=== PATIENT | male | born 1945 | race Caucasian/White ===

== ENCOUNTER 2018-06-26 14:19 | Outpatient (REF) | payer MEDICARE, MEDICAID, SELFPAY ==
[2018-06-26 14:56] LABS: ALT 19 U/L (12-78); AST 14 U/L (15-37); Albumin 2.8 g/dL (3.4-5.0); Alkaline Phosphatase 99 U/L (46-116); Anion Gap 8.7 mmol/L (3-11); BUN 15 mg/dL (7-18); Bilirubin, Total 0.3 mg/dL (0.2-1.0); CO2 28.3 mmol/L (21.0-32.0); CREATININE 1.21 mg/dL (0.70-1.30); Calcium 9.2 mg/dL (8.5-10.1); Chloride 98 mmol/L (98-107); Estimated GFR 59.12 (mL/min/1.73m2); Glucose 197 mg/dL (70-100); Potassium 3.8 mmol/L (3.5-5.1); Sodium 135 mmol/L (136-145)
== END 2018-06-26 14:39 ==
LOC: LBN 14:19
PROVIDERS: Visit Provider Internal Medicine Hematology & Oncology
DX: C34.91 Malignant neoplasm of unspecified part of right bronchus or lung (principal)
CPT/HCPCS: 80053

== ENCOUNTER 2018-06-27 10:00 | Emergency (ER) | payer MEDICARE, MEDICAID, SELFPAY ==
[2018-06-27] VITALS (13 sets, daily range): BP systolic 89–115; BP diastolic 62–64; PULSE 63–88; RESP 16–22; TEMP 36.8–36.9; O2SAT 91–98
--- NOTE | 2018-06-27 10:06 | ED.GENADUL_ITS ---
Discharge Plan Disposition Patient Disposition: HOME Condition: Stable Discharge Details Chief Complaint: Dizzy/Sync Clinical Impression: Hypotension, Dizziness Reason For Visit: JORDY Primary Care Provider: Unknown,Unknown ED Provider: Aram Garcia Discharge Instructions Additional Instructions: Your blood work was unremarkable other than your white blood cell count being elevated which could be from the cancer and chemotherapy Follow up with your oncologist and discuss your chemotherapy treatment If you have fevers, difficulty breathing, chest pain, persistent vomit or abdominal pain return to the emergency department Medical Decision Making 73 yo male who started his first chemotherapy session today for lung cancer comes in with dizziness and hypotension that started a few minutes after starting the chemotherapy infusion. He denies chest pain, sob, rash or gi symptoms. Was given 500cc crystalloid with ems and now feels better and has no complaints. Will monitor to see if he has any evidence of anaphylaxis and eval for anemia and electrolyte abnormality pt remains stable without symptoms here. He does have wbc of 17 which could be from his cancer, denies any fevers, chills ,cough, urinary symptoms or other symptoms to suggest underlying infection so do not feel any additional workup indicated. ADvised he discuss his chemotherpay with his oncologist and return precautions given Differential Diagnosis allergic reaction, hypotension, electrolyte abnormality ECG Data Attestation: I personally reviewed and interpreted this ECG (s) as follows: Prior ECG tracings: not available for review Interpretation: sinus rhythm, rate of [address] t wave findings HPI General Mode of arrival: EMS . Date/Time Provider Initiated Documentation: 06/27/18 10:06 . Limitations to Documentation: no limitations . Information obtained by: patient . History of Present Illness 73 year old M presents to the emergency department with the chief complaint of dizziness, described as moderate, Patient started experiencing this hour(s) (1) and it has been now resolved. Patient notes no other symptoms.. Review of Systems Review of Systems All systems reviewed & are unremarkable except as noted in HPI and below Constitutional Denies chills, Denies fever(s) and Denies weakness Eyes Denies loss of vision ENT Denies change in voice Cardiovascular Denies chest pain and Denies dyspnea Respiratory Denies dyspnea Gastrointestinal Denies abdominal pain, Denies nausea and Denies vomiting Genitourinary Denies dysuria Musculoskeletal Denies joint swelling Integumentary/Breasts Denies rash Neurologic Denies loss of vision and Denies weakness Psychiatric Denies depression Endocrine Denies cold intolerance and Denies heat intolerance Allergic/Immunologic Denies urticaria PFSH Social History Smoking/Tobacco Use Status: Former Tobacco Use Exam Const General: no acute distress Orientation: alert HENMT Head: normal to inspection Ears: external ears normal General nose exam: external nose normal Mouth: moist mucous membranes Eyes General: appearance normal, both eyes and all related structures Neck Neck: normal visual inspection Resp Effort & Inspection: normal respiratory effort and able to speak in complete sentences Cardio Rate: regular rate Skin General skin exam: no rashes or lesions noted Neuro General: alert and oriented x3 Extrem General: normal to inspection Psych Mental Status: mental status grossly normal
[2018-06-27 10:35] LABS: Abs Immature Grans 0.16 k/cumm (0.0-0.09); Absolute Lymphocyte Count 0.31 k/cumm (1.2-3.4); Absolute Neutrophil Count 16.32 k/cumm (1.2-6.7); Basophils % 0.1; HCT 45.3 % (40.0-50.0); HGB 14.9 g/dL (13.5-17.5); Immature Grans % 0.9; Lymphocytes % 1.8; Mean Corp. HGB Concentration 32.9 g/dL (32.0-36.0); Mean Corpuscular Hemoglobin 32.3 pg (27.0-33.0); Mean Corpuscular Volume 98.1 fL (80-95); Mean Platelet Volume 8.6 fL (8.0-11.0); Monocytes % 1.2; Platelet Count 418 x1000/uL (130-400); RBC 4.62 m/cumm (4.50-6.00); RBC Distribution Width 13.5 % (11.8-14.1)
[2018-06-27 10:37] LABS: Absolute Basophil Count 0.02 k/cumm (0.0-0.2)
[2018-06-27 10:49] LABS: INR 1.1 (1.0-3.5); PTT Activated 21.4 sec (21.0-31.4); Prothrombin Time 10.4 sec (9.3-10.8)
[2018-06-27 10:52] LABS: ALT 17 U/L (12-78); AST 13 U/L (15-37); Albumin 2.5 g/dL (3.4-5.0); Alkaline Phosphatase 106 U/L (46-116); Anion Gap 11.2 mmol/L (3-11); BUN 17 mg/dL (7-18); Bilirubin, Total 0.4 mg/dL (0.2-1.0); CO2 25.8 mmol/L (21.0-32.0); Chloride 100 mmol/L (98-107); Estimated GFR 59.68 (mL/min/1.73m2); Glucose 121 mg/dL (70-100); Potassium 3.8 mmol/L (3.5-5.1); Sodium 137 mmol/L (136-145); Total Protein 6.2 g/dL (6.4-8.2)
== END 2018-06-27 11:43 | disposition home or self-care (01) ==
PROVIDERS: Emergency Provider Emergency Medicine; PCP Neuromusculoskeletal Medicine & OMM
DX: I95.9 Hypotension, unspecified (principal); R42 Dizziness and giddiness; D72.829 Elevated white blood cell count, unspecified; Z79.899 Other long term (current) drug therapy; C34.90 Malignant neoplasm of unspecified part of unspecified bronchus or lung; Z85.72 Personal history of non-Hodgkin lymphomas
CPT/HCPCS: 36415; 80053; 93005; 99283; 85025; 85610; 85730; 93010; 99284

== ENCOUNTER 2018-07-12 09:12 | Emergency (ER) | payer MEDICARE, MEDICAID, SELFPAY ==
[2018-07-12] VITALS (23 sets, daily range): BP systolic 104–133; BP diastolic 59–68; PULSE 66–82; RESP 10–20; TEMP 37–37.8; O2SAT 93–96
[2018-07-12 09:32] LABS: Bilirubin Negative (Negative); Blood Negative (Negative); Clarity Turbid; Glucose Negative (Negative); Ketones Negative (Negative); Leukocyte Esterase Small (Negative); Nitrite Negative (Negative); Urobilinogen 0.2 EU/dL (Up TO 0.2); pH >= 9.0 (5-8)
[2018-07-12] MEDS: Normal Saline 250 ML IV (09:39)
[2018-07-12 09:44] LABS: Bacteria Few HPF (Negative); Epithelial Cells Negative HPF (Negative); RBC Negative (0-2)
[2018-07-12 09:45] LABS: C & S Indicated? Yes; Casts Negative LPF (Negative); Mucus Trace (Negative)
[2018-07-12 09:48] LABS: Abs Immature Grans 0.04 k/cumm (0.0-0.09); Absolute Basophil Count 0.01 k/cumm (0.0-0.2); Absolute Eosinophil Count 0.03 k/cumm (0.0-0.7); Absolute Lymphocyte Count 0.27 k/cumm (1.2-3.4); Absolute Neutrophil Count 8.86 k/cumm (1.2-6.7); Basophils % 0.1; Eosinophils % 0.3; HCT 38.4 % (40.0-50.0); HGB 12.4 g/dL (13.5-17.5); Immature Grans % 0.4; Lactate-non-spesis 1.1 mmol/L (0.6-1.4); Lymphocytes % 2.8; Mean Corp. HGB Concentration 32.3 g/dL (32.0-36.0); Mean Corpuscular Hemoglobin 32.3 pg (27.0-33.0); Mean Platelet Volume 8.6 fL (8.0-11.0); Monocytes % 3.2; Neutrophils % 93.2; Platelet Count 331 x1000/uL (130-400); RBC 3.84 m/cumm (4.50-6.00); RBC Distribution Width 14.4 % (11.8-14.1); White Blood Cell Count 9.51 k/cumm (4.4-10.8)
[2018-07-12 10:07] LABS: ALT 25 U/L (12-78); AST 18 U/L (15-37); Albumin 2.8 g/dL (3.4-5.0); Alkaline Phosphatase 87 U/L (46-116); Anion Gap 9.9 mmol/L (3-11); BUN 12 mg/dL (7-18); Bilirubin, Total 0.4 mg/dL (0.2-1.0); CO2 26.1 mmol/L (21.0-32.0); CREATININE 1.09 mg/dL (0.70-1.30); Calcium 8.8 mg/dL (8.5-10.1); Chloride 99 mmol/L (98-107); Glucose 107 mg/dL (70-100); Magnesium 1.7 mg/dL (1.8-2.4); Sodium 135 mmol/L (136-145); Total Protein 6.7 g/dL (6.4-8.2)
[2018-07-12 10:11] LABS: Troponin I < 0.02 ng/mL (0.00-0.06)
--- NOTE | 2018-07-12 10:15 | DI.RAD_ITS ---
SYMPTOM/DIAGNOSIS: LOW GRADE FEVER, R/O PNEUMONIA PA AND LATERAL CHEST: There are no prior comparison exams. The patient has a history of right lung cancer. There is a small right pleural effusion. A mass is seen in the right upper lobe measuring roughly 4 cm in diameter. There are mildly increased basilar densities could be secondary to compressive atelectasis related to the effusion. There is a tiny left pleural effusion. The left lung is otherwise clear. The heart size is normal. IMPRESSION: Right upper lobe mass. Small right pleural effusion and right basilar atelectasis. A superimposed infiltrate cannot be entirely excluded in this location.
--- NOTE | 2018-07-12 10:43 | DI.VRAD_ITS ---
EXAM: XR Chest, 2 Views EXAM DATE/TIME: 07/12/2018 9:32 AM CLINICAL HISTORY: 73 years old, male; Signs and symptoms; Fever and shortness of breath; Patient HX: Low grade fever, and SOB since last night. PT sts was diagnosed with right lung cancer 1 month ago. Ex smoker TECHNIQUE: XR of the chest, 2 views. COMPARISON: No relevant prior studies available. FINDINGS: Lungs: There appear to be 2 right perihilar masses measuring up to 3.6 cm and 3.5 cm. There is some atelectasis and/or infiltrate at the right base. Streaky atelectasis extends laterally from the right hilar region. The left lung is relatively clear. Pleural space: There are small right and very small left pleural effusions. No pneumothorax is identified. Heart/Mediastinum: Unremarkable. No cardiomegaly. Bones/joints: The visualized bony structures appear acutely unremarkable. IMPRESSION: Small right and very small left pleural effusions with some right basilar atelectasis and/or infiltrate. Appearance of 2 right perihilar masses, further evaluation and/or followup to be determined at time of final read depending on availability of prior imaging and as per institutional protocol. Dictated and Authenticated by: Aram Hudson MD. Ordering:MICHELLE BROWNING MD
--- NOTE | 2018-07-12 11:09 | W.ED.GENAD ---
Discharge Plan Disposition Patient Disposition: HOME Condition: Stable Discharge Details Chief Complaint: Fever Clinical Impression: Fever, History of lung cancer, Status post chemotherapy Primary Care Provider: Larry Estrella ED Provider: Prema Vasques Home Meds and New Rx's Prescriptions: Continue sennosides [senna] 8.6 mg Tablet 1 tab PO DAILY RF: 0 polyethylene glycol 3350 17 gram Powder In Packet 17 g PO DAILY PRNRF: 0 hydrocodone-acetaminophen 5-325 mg Tablet 1 tab PO TID RF: 0 acetaminophen [Acetaminophen Extra Strength] 500 mg Tablet 1,000 mg PO TID RF: 0 simvastatin 40 mg Tablet 40 mg PO QPM RF: 0 ondansetron 8 mg Tablet,Disintegrating 8 mg PO TID PRNRF: 0 lorazepam 0.5 mg Tablet 0.5 mg PO QID PRN (Reason: Anxiety) RF: 0 bisacodyl 10 mg Suppository 10 mg IA DAILY RF: 0 losartan 25 mg Tablet 25 mg PO DAILY RF: 0 nitroglycerin 0.4 mg Tablet, Sublingual 0.4 mg SUBLINGUAL ONCE PRNRF: 0 gabapentin 300 mg Capsule 300 mg PO TID RF: 0 omeprazole 20 mg Capsule,Delayed Release(Dr/Ec) 20 mg PO DAILY RF: 0 diltiazem HCl [DILT-XR] 180 mg Capsule,Ext.Rel 24h Degradable 180 mg PO DAILY RF: 0 oxycodone 5 mg Tablet 10 mg PO QID PRNRF: 0 [id number] [Theragran-M Premier 50 Plus] 400-250-375 mcg Tablet 1 tab PO DAILY RF: 0 fentanyl 37.5 mcg/hour Patch 72 Hour 1 patch TRANSDERMAL Q72H RF: 0 Discharge Instructions Instructions: Fever in Adults (ED) Additional Instructions: Continue to check your temperature 3 times daily. Return to the emergency department if you develop a fever greater than 100.4. You can also call the cancer center for any recommendations. Follow-up with your scheduled appointment for your next chemotherapy session on 07/17. Discharge Data Discharge Physician: Prema Vasques Medical Decision Making 73-year-old male with a history of stage IV lung cancer who recently finished radiation a couple weeks ago, and last chemo treatment 1 week ago who presents for low-grade fever of 99.2 oral last night. Admits to chronic cough and shortness of breath but states this is no worse than usual and denies any chest pain or abdominal pain. States he has been eating and drinking well. Afebrile on arrival. Oxygen saturation 94% on room air. Remainder vitals within normal limits. Airway intact and patient is speaking full sentences. No respiratory distress. Patient appears nontoxic and in no acute distress. Due to patient's complaint and history, labs, urinalysis and chest x-ray in addition to lactate and blood culture sent on arrival. EKG notes a rate of 75, sinus, T wave inversion in V2, left anterior fascicular block, right bundle branch block seen in previous. QTc 420. QRS 104. No acute change from previous. Labs and imaging reviewed and noted a white blood cell count of 9.51. Neutrophils percent 93.2. Patient is not neutropenic. Lactate 1.1. Troponin negative. Patient denies any recent Neulasta injection. Patient has a history of urostomy bag due to previous bladder and prostate cancer and there is a 5-10 WBCs in the urine, few bacteria, small leukocyte esterase, and negative nitrate. Patient denies any acute change to appearance of urine and he denies any abdominal pain. Would expect some WBCs in the urine due to urostomy bag. Urine culture sent. Chest x-ray notes 2 R perihilar masses w/ atelectasis vs infiltrate. In the setting of normal white blood cell count, no fever here, no acute change in cough or shortness of breath, will hold on antibiotics at this time. Sputum culture sent. Will discuss with [facility] oncology. 1112 --discussed with [facility] oncology on-call Dr. Montez -states that the temperature of concern would be 100.4. Second recheck temp here 100 and third recheck temp 99.5 without any meds given. As patient is not neutropenic, appears nontoxic, normal white blood cell count, agree there does not seem to be an acute indication for antibiotics or admission. Would recommend that patient continue to check his temp TID, and if it is 100.4, to return to the emergency department. Recommends the patient can also call the cancer center for any recommendations. Patient asked for Tylenol prior to discharge for his chronic right-sided lung pain. HPI General Mode of arrival: ambulatory. Date/Time Provider Initiated Documentation: 07/12/18 09:26. Limitations to Documentation: no limitations. Information obtained by: patient. HPI Narrative: Pt is a 73yo M w/ a h/o Stage 4 Lung Cancer who recently finished radiation a few weeks ago, and had 2 chemo treatments which finished last week who presents for low-grade fever since last night. T-max 99.2 oral. States he took a dose of Tylenol at 5 AM this morning. States he has had a constant cough for several weeks which is productive of white, brown and teague sputum. He states this is no worse than usual. He states he has chronic shortness of breath and states no worse than usual. He admits to chronic right-sided lung pain. States is no worse than usual. He denies any chest pain, leg pain or swelling. States he is followed down the road at [facility] and states his next chemo treatment and appointment is on 07/17. He denies any recent hospital admission or recent antibiotics. Past medical history: HTN, HLD, Non-hodgkin's lymphoma, Stage 4 [place] Cancer, Bladder/prostate cancer Surgical history: Bladder/prostate resection Social history: Quit tobacco, Former alcohol use, Denies drugs Meds: See list Allergies: Cipro, PCN, Tetanus, Toprol, Norvasc Related Data Home Medications Medication Instructions Recorded Confirmed acetaminophen [Acetaminophen Extra 1,000 mg PO TID 07/12/18 07/12/18 Strength] bisacodyl 10 mg IA DAILY 07/12/18 07/12/18 diltiazem HCl [DILT-XR] 180 mg PO DAILY 07/12/18 07/12/18 fentanyl 1 patch TRANSDERMAL Q72H 07/12/18 07/12/18 gabapentin 300 mg PO TID 07/12/18 07/12/18 hydrocodone-acetaminophen 1 tab PO TID 07/12/18 07/12/18 lorazepam 0.5 mg PO QID PRN 07/12/18 07/12/18 losartan 25 mg PO DAILY 07/12/18 07/12/18 [id number] 1 tab PO DAILY 07/12/18 07/12/18 [Theragran-M Premier 50 Plus] nitroglycerin 0.4 mg SUBLINGUAL ONCE PRN 07/12/18 07/12/18 omeprazole 20 mg PO DAILY 07/12/18 07/12/18 ondansetron 8 mg PO TID PRN 07/12/18 07/12/18 oxycodone 10 mg PO QID PRN 07/12/18 07/12/18 polyethylene glycol 3350 17 g PO DAILY PRN 07/12/18 07/12/18 sennosides [senna] 1 tab PO DAILY 07/12/18 07/12/18 simvastatin 40 mg PO QPM 07/12/18 07/12/18 Allergies Allergy/AdvReac Type Severity Reaction Status Date / Time amlodipine Allergy Unknown Itching Unverified 07/12/18 09:34 ciprofloxacin Allergy Unknown Hives Unverified 07/12/18 09:34 metoprolol Allergy Unknown Hives Unverified 07/12/18 09:34 paclitaxel Allergy Unknown Anaphylaxsi Unverified 07/12/18 09:34 s Penicillins Allergy Unknown Other (See Unverified 07/12/18 09:35 Comment) tetanus and diphtheria Allergy Unknown Other (See Unverified 07/12/18 09:35 toxoids Comment) tetanus toxoid, adsorbed Allergy Unknown Other (See Unverified 07/12/18 09:35 Comment) General Stated Complaint: Fever BARRY: 3 Review of Systems Review of Systems All systems reviewed & are unremarkable except as noted in HPI and below Constitutional Denies chills, Denies excessive sweating, Denies fatigue, Denies fever(s), Denies weakness and Denies weight loss Eyes Reports system reviewed and no additional complaints, except as docu and Denies blurry vision ENT Denies vertigo, Denies dizziness, Denies otalgia, Denies nasal congestion, Denies sore throat and Denies throat swelling Cardiovascular Denies chest pain, Denies syncope, Denies rapid heart rate and Reports dyspnea (chronic) Respiratory Reports dyspnea (chronic) Gastrointestinal Denies abdominal pain, Denies diarrhea and Denies vomiting Genitourinary Denies hematuria, Denies dysuria and Denies flank pain Musculoskeletal Denies back pain and Denies joint swelling Integumentary/Breasts Denies lesions and Denies rash Neurologic Denies behavioral changes, Denies confusion, Denies vertigo, Denies dizziness, Denies syncope and Denies weakness Psychiatric Denies behavioral changes, Denies confusion and Denies depression Endocrine Denies excessive sweating and Denies fatigue Hematologic/Lymphatic Denies easy bruising and Denies lymphadenopathy Allergic/Immunologic Denies throat swelling [facility] Social History Smoking/Tobacco Use Status: Former Tobacco Use Exam Const General: cooperative and healthy appearing Orientation: alert and awake [facility] Head: normal to inspection Ears: hearing grossly normal bilaterally, external ears normal and TM's normal bilaterally General nose exam: external nose normal Face and sinus: normal facial exam Mouth: oral mucosae normal Teeth and gingiva: dentition normal Throat: posterior oropharynx normal Eyes General: appearance normal, both eyes and all related structures Eyelids: eyelids normal EOM: EOM intact bilaterally Neck Neck: normal visual inspection Lymphatic: no lymphadenopathy noted Chest Chest: normal inspection of the chest Resp Effort & Inspection: normal respiratory effort and able to speak in complete sentences Auscultation: clear to auscultation bilaterally and crackles on the right at the base Cardio Rate: regular rate Rhythm: regular rhythm GI Inspection: normal to inspection Palpation: soft, not firm, no guarding, no hepatosplenomegaly, no masses and nontender Auscultation: normal bowel sounds Back/Spine/Pelvis Back: no CVA tenderness Skin General skin exam: no rashes or lesions noted Neuro General: alert and awake Cognition: normal cognition Speech: speech normal Gait: normal gait Motor: muscle tone normal throughout Sensory Exam: no sensory deficits noted Extrem General: normal to inspection, full ROM, normal capillary refill and no edema Psych Appearance: grossly normal Mental Status: mental status grossly normal Speech and Movement: speech and movement normal Affect: normal affect Thought Process: normal Course 07/12/18 09:35 Sputum Sputum Culture - Pending 07/12/18 09:35 Sputum Gram Stain - Final 07/12/18 09:57 Blood Blood Culture - Pending 07/12/18 09:57 Blood Blood Culture - Pending 07/12/18 09:20 Urine - Reflex from Ua Urine Culture - Pending Laboratory Tests Range/Units 07/12/18 07/12/18 07/12/18 09:20 09:35 09:35 WBC (4.4-10.8) k/cumm RBC (4.50-6.00) m/cumm Hgb (13.5-17.5) g/dL Hct (40.0-50.0) % MCV (80-95) fL MCH (27.0-33.0) pg MCHC (32.0-36.0) g/dL RDW (11.8-14.1) % Plt Count (130-400) x1000/uL MPV (8.0-11.0) fL Immature Gran % Neutrophils % Lymphocytes % Monocytes % Eosinophils % Basophils % Absolute Neutrophils (1.2-6.7) k/cumm Absolute Lymphocytes (1.2-3.4) k/cumm Absolute Monocytes (0.11-0.7) k/cumm Absolute Eosinophils (0.0-0.7) k/cumm Absolute Basophils (0.0-0.2) k/cumm Sodium (136-145) mmol/L 135 L Potassium (3.5-5.1) mmol/L 4.0 Chloride (98-107) mmol/L 99 Carbon Dioxide (21.0-32.0) mmol/L 26.1 Anion Gap (3-11) mmol/L 9.9 BUN (7-18) mg/dL 12 Creatinine (0.70-1.30) mg/dL 1.09 Estimated GFR/1.73 m2 (mL/min/1.73m2) >= 60.00 Glucose (70-100) mg/dL 107 H Lactate (0.6-1.4) mmol/L 1.1 Calcium (8.5-10.1) mg/dL 8.8 Magnesium (1.8-2.4) mg/dL 1.7 L Total Bilirubin (0.2-1.0) mg/dL 0.4 AST (15-37) U/L 18 ALT (12-78) U/L 25 Alkaline Phosphatase (46-116) U/L 87 Troponin I (0.00-0.06) ng/mL < 0.02 Total Protein (6.4-8.2) g/dL 6.7 Albumin (3.4-5.0) g/dL 2.8 L Urine Color (Yellow) Yellow Urine Clarity Turbid Urine pH (5-8) >= 9.0 H Ur Specific [place] (1.005-1.025) 1.010 Urine Protein (Negative) mg/dL 100 H Urine Ketones (Negative) mg/dL Negative Urine Blood (Negative) Negative Urine Nitrite (Negative) Negative Urine Bilirubin (Negative) Negative Urine Urobilinogen (Up TO 0.2) EU/dL 0.2 Ur Leukocyte Esterase (Negative) Small H Urine RBC (0-2) Negative Urine WBC (0-5) HPF 5-10 Ur Epithelial Cells (Negative) HPF Negative Urine Crystals (Negative) HPF Many uric acid Urine Bacteria (Negative) HPF Few Urine Casts (Negative) LPF Negative Urine Mucus (Negative) Trace Ur Culture Indicated? Yes Urine Glucose (Negative) mg/dL Negative Range/Units 07/12/18 09:35 WBC (4.4-10.8) k/cumm 9.51 RBC (4.50-6.00) m/cumm 3.84 L Hgb (13.5-17.5) g/dL 12.4 L Hct (40.0-50.0) % 38.4 L MCV (80-95) fL 100.0 H MCH (27.0-33.0) pg 32.3 MCHC (32.0-36.0) g/dL 32.3 RDW (11.8-14.1) % 14.4 H Plt Count (130-400) x1000/uL 331 MPV (8.0-11.0) fL 8.6 Immature Gran % 0.4 Neutrophils % 93.2 Lymphocytes % 2.8 Monocytes % 3.2 Eosinophils % 0.3 Basophils % 0.1 Absolute Neutrophils (1.2-6.7) k/cumm 8.86 H Absolute Lymphocytes (1.2-3.4) k/cumm 0.27 L Absolute Monocytes (0.11-0.7) k/cumm 0.30 Absolute Eosinophils (0.0-0.7) k/cumm 0.03 Absolute Basophils (0.0-0.2) k/cumm 0.01 Sodium (136-145) mmol/L Potassium (3.5-5.1) mmol/L Chloride (98-107) mmol/L Carbon Dioxide (21.0-32.0) mmol/L Anion Gap (3-11) mmol/L BUN (7-18) mg/dL Creatinine (0.70-1.30) mg/dL Estimated GFR/1.73 m2 (mL/min/1.73m2) Glucose (70-100) mg/dL Lactate (0.6-1.4) mmol/L Calcium (8.5-10.1) mg/dL Magnesium (1.8-2.4) mg/dL Total Bilirubin (0.2-1.0) mg/dL AST (15-37) U/L ALT (12-78) U/L Alkaline Phosphatase (46-116) U/L Troponin I (0.00-0.06) ng/mL Total Protein (6.4-8.2) g/dL Albumin (3.4-5.0) g/dL Urine Color (Yellow) Urine Clarity Urine pH (5-8) Ur Specific [place] (1.005-1.025) Urine Protein (Negative) mg/dL Urine Ketones (Negative) mg/dL Urine Blood (Negative) Urine Nitrite (Negative) Urine Bilirubin (Negative) Urine Urobilinogen (Up TO 0.2) EU/dL Ur Leukocyte Esterase (Negative) Urine RBC (0-2) Urine WBC (0-5) HPF Ur Epithelial Cells (Negative) HPF Urine Crystals (Negative) HPF Urine Bacteria (Negative) HPF Urine Casts (Negative) LPF Urine Mucus (Negative) Ur Culture Indicated? Urine Glucose (Negative) mg/dL Vital Signs Temperature 98.6 F 07/12/18 09:16 Pulse 82 07/12/18 09:16 Respiratory Rate 18 07/12/18 09:16 Blood Pressure 133/66 07/12/18 09:16 Pulse Oximetry 94 L 07/12/18 09:16 Temperature 100.0 F H 07/12/18 10:35 Temperature Source Skin 07/12/18 09:16 Pulse 68 07/12/18 10:16 Pulse 67 07/12/18 10:30 Respiratory Rate 14 07/12/18 10:30 Respiratory Effort Non-Labored 07/12/18 09:19 Blood Pressure 116/59 L 07/12/18 10:16 Blood Pressure Mean 73 07/12/18 10:16 Pulse Oximetry 94 L 07/12/18 10:30 Pain Level 8 07/12/18 09:16 Lab/Test Results Lab/Test Results: 07/12/18 09:35 Sputum Sputum Culture - Pending 07/12/18 09:35 Sputum Gram Stain - Final 07/12/18 09:57 Blood Blood Culture - Pending 07/12/18 09:57 Blood Blood Culture - Pending 07/12/18 09:20 Urine - Reflex from Ua Urine Culture - Pending Laboratory Tests Range/Units 07/12/18 07/12/18 07/12/18 09:20 09:35 09:35 WBC (4.4-10.8) k/cumm RBC (4.50-6.00) m/cumm Hgb (13.5-17.5) g/dL Hct (40.0-50.0) % MCV (80-95) fL MCH (27.0-33.0) pg MCHC (32.0-36.0) g/dL RDW (11.8-14.1) % Plt Count (130-400) x1000/uL MPV (8.0-11.0) fL Immature Gran % Neutrophils % Lymphocytes % Monocytes % Eosinophils % Basophils % Absolute Neutrophils (1.2-6.7) k/cumm Absolute Lymphocytes (1.2-3.4) k/cumm Absolute Monocytes (0.11-0.7) k/cumm Absolute Eosinophils (0.0-0.7) k/cumm Absolute Basophils (0.0-0.2) k/cumm Sodium (136-145) mmol/L 135 L Potassium (3.5-5.1) mmol/L 4.0 Chloride (98-107) mmol/L 99 Carbon Dioxide (21.0-32.0) mmol/L 26.1 Anion Gap (3-11) mmol/L 9.9 BUN (7-18) mg/dL 12 Creatinine (0.70-1.30) mg/dL 1.09 Estimated GFR/1.73 m2 (mL/min/1.73m2) >= 60.00 Glucose (70-100) mg/dL 107 H Lactate (0.6-1.4) mmol/L 1.1 Calcium (8.5-10.1) mg/dL 8.8 Magnesium (1.8-2.4) mg/dL 1.7 L Total Bilirubin (0.2-1.0) mg/dL 0.4 AST (15-37) U/L 18 ALT (12-78) U/L 25 Alkaline Phosphatase (46-116) U/L 87 Troponin I (0.00-0.06) ng/mL < 0.02 Total Protein (6.4-8.2) g/dL 6.7 Albumin (3.4-5.0) g/dL 2.8 L Urine Color (Yellow) Yellow Urine Clarity Turbid Urine pH (5-8) >= 9.0 H Ur Specific [place] (1.005-1.025) 1.010 Urine Protein (Negative) mg/dL 100 H Urine Ketones (Negative) mg/dL Negative Urine Blood (Negative) Negative Urine Nitrite (Negative) Negative Urine Bilirubin (Negative) Negative Urine Urobilinogen (Up TO 0.2) EU/dL 0.2 Ur Leukocyte Esterase (Negative) Small H Urine RBC (0-2) Negative Urine WBC (0-5) HPF 5-10 Ur Epithelial Cells (Negative) HPF Negative Urine Crystals (Negative) HPF Many uric acid Urine Bacteria (Negative) HPF Few Urine Casts (Negative) LPF Negative Urine Mucus (Negative) Trace Ur Culture Indicated? Yes Urine Glucose (Negative) mg/dL Negative Range/Units 07/12/18 09:35 WBC (4.4-10.8) k/cumm 9.51 RBC (4.50-6.00) m/cumm 3.84 L Hgb (13.5-17.5) g/dL 12.4 L Hct (40.0-50.0) % 38.4 L MCV (80-95) fL 100.0 H MCH (27.0-33.0) pg 32.3 MCHC (32.0-36.0) g/dL 32.3 RDW (11.8-14.1) % 14.4 H Plt Count (130-400) x1000/uL 331 MPV (8.0-11.0) fL 8.6 Immature Gran % 0.4 Neutrophils % 93.2 Lymphocytes % 2.8 Monocytes % 3.2 Eosinophils % 0.3 Basophils % 0.1 Absolute Neutrophils (1.2-6.7) k/cumm 8.86 H Absolute Lymphocytes (1.2-3.4) k/cumm 0.27 L Absolute Monocytes (0.11-0.7) k/cumm 0.30 Absolute Eosinophils (0.0-0.7) k/cumm 0.03 Absolute Basophils (0.0-0.2) k/cumm 0.01 Sodium (136-145) mmol/L Potassium (3.5-5.1) mmol/L Chloride (98-107) mmol/L Carbon Dioxide (21.0-32.0) mmol/L Anion Gap (3-11) mmol/L BUN (7-18) mg/dL Creatinine (0.70-1.30) mg/dL Estimated GFR/1.73 m2 (mL/min/1.73m2) Glucose (70-100) mg/dL Lactate (0.6-1.4) mmol/L Calcium (8.5-10.1) mg/dL Magnesium (1.8-2.4) mg/dL Total Bilirubin (0.2-1.0) mg/dL AST (15-37) U/L ALT (12-78) U/L Alkaline Phosphatase (46-116) U/L Troponin I (0.00-0.06) ng/mL Total Protein (6.4-8.2) g/dL Albumin (3.4-5.0) g/dL Urine Color (Yellow) Urine Clarity Urine pH (5-8) Ur Specific [place] (1.005-1.025) Urine Protein (Negative) mg/dL Urine Ketones (Negative) mg/dL Urine Blood (Negative) Urine Nitrite (Negative) Urine Bilirubin (Negative) Urine Urobilinogen (Up TO 0.2) EU/dL Ur Leukocyte Esterase (Negative) Urine RBC (0-2) Urine WBC (0-5) HPF Ur Epithelial Cells (Negative) HPF Urine Crystals (Negative) HPF Urine Bacteria (Negative) HPF Urine Casts (Negative) LPF Urine Mucus (Negative) Ur Culture Indicated? Urine Glucose (Negative) mg/dL
--- NOTE | 2018-07-12 11:17 | ED.GENADUL_ITS ---
Discharge Plan Disposition Patient Disposition: HOME Condition: Stable Discharge Details Chief Complaint: Fever Clinical Impression: Fever, History of lung cancer, Status post chemotherapy Primary Care Provider: Larry Estrella ED Provider: Prema Vasques Home Meds and New Rx's Prescriptions: Continue sennosides [senna] 8.6 mg Tablet 1 tab PO DAILY RF: 0 polyethylene glycol 3350 17 gram Powder In Packet 17 g PO DAILY PRNRF: 0 hydrocodone-acetaminophen 5-325 mg Tablet 1 tab PO TID RF: 0 acetaminophen [Acetaminophen Extra Strength] 500 mg Tablet 1,000 mg PO TID RF: 0 simvastatin 40 mg Tablet 40 mg PO QPM RF: 0 ondansetron 8 mg Tablet,Disintegrating 8 mg PO TID PRNRF: 0 lorazepam 0.5 mg Tablet 0.5 mg PO QID PRN (Reason: Anxiety) RF: 0 bisacodyl 10 mg Suppository 10 mg [place] DAILY RF: 0 losartan 25 mg Tablet 25 mg PO DAILY RF: 0 nitroglycerin 0.4 mg Tablet, Sublingual 0.4 mg SUBLINGUAL ONCE PRNRF: 0 gabapentin 300 mg Capsule 300 mg PO TID RF: 0 omeprazole 20 mg Capsule,Delayed Release(Dr/Ec) 20 mg PO DAILY RF: 0 diltiazem HCl [DILT-XR] 180 mg Capsule,Ext.Rel 24h Degradable 180 mg PO DAILY RF: 0 oxycodone 5 mg Tablet 10 mg PO QID PRNRF: 0 [id number] [Theragran-M Premier 50 Plus] 400-250-375 mcg Tablet 1 tab PO DAILY RF: 0 fentanyl 37.5 mcg/hour Patch 72 Hour 1 patch TRANSDERMAL Q72H RF: 0 Discharge Instructions Instructions: Fever in Adults (ED) Additional Instructions: Continue to check your temperature 3 times daily. Return to the emergency department if you develop a fever greater than 100.4. You can also call the cancer center for any recommendations. Follow-up with your scheduled appointment for your next chemotherapy session on 07/17. Discharge Data Discharge Physician: Prema Vasques Medical Decision Making 73-year-old male with a history of stage IV lung cancer who recently finished radiation a couple weeks ago, and last chemo treatment 1 week ago who presents for low-grade fever of 99.2 oral last night. Admits to chronic cough and shortness of breath but states this is no worse than usual and denies any chest pain or abdominal pain. States he has been eating and drinking well. Afebrile on arrival. Oxygen saturation 94% on room air. Remainder vitals within normal limits. Airway intact and patient is speaking full sentences. No respiratory distress. Patient appears nontoxic and in no acute distress. Due to patient's complaint and history, labs, urinalysis and chest x-ray in addition to lactate and blood culture sent on arrival. EKG notes a rate of 75, sinus, T wave inversion in V2, left anterior fascicular block, right bundle branch block seen in previous. QTc 420. QRS 104. No acute change from previous. Labs and imaging reviewed and noted a white blood cell count of 9.51. Neutrophils percent 93.2. Patient is not neutropenic. Lactate 1.1. Troponin negative. Patient denies any recent Neulasta injection. Patient has a history of urostomy bag due to previous bladder and prostate cancer and there is a 5-10 WBCs in the urine, few bacteria, small leukocyte esterase, and negative nitrate. Patient denies any acute change to appearance of urine and he denies any abdominal pain. Would expect some WBCs in the urine due to urostomy bag. Urine culture sent. Chest x-ray notes 2 R perihilar masses w/ atelectasis vs infiltrate. In the setting of normal white blood cell count, no fever here, no acute change in cough or shortness of breath, will hold on antibiotics at this time. Sputum culture sent. Will discuss with [facility] oncology. 1112 --discussed with [facility] oncology on-call Dr. Montez -states that the temperature of concern would be 100.4. Second recheck temp here 100 and third recheck temp 99.5 without any meds given. As patient is not neutropenic, appears nontoxic, normal white blood cell count, agree there does not seem to be an acute indication for antibiotics or admission. Would recommend that patient continue to check his temp TID, and if it is 100.4, to return to the emergency department. Recommends the patient can also call the cancer center for any recommendations. Patient asked for Tylenol prior to discharge for his chronic right-sided lung pain. HPI General Mode of arrival: ambulatory . Date/Time Provider Initiated Documentation: 07/12/18 09:26 . Limitations to Documentation: no limitations . Information obtained by: patient . HPI Narrative: Pt is a 73yo M w/ a h/o Stage 4 Lung Cancer who recently finished radiation a few weeks ago, and had 2 chemo treatments which finished last week who presents for low-grade fever since last night. T-max 99.2 oral. States he took a dose of Tylenol at 5 AM this morning. States he has had a constant cough for several weeks which is productive of white, brown and teague sputum. He states this is no worse than usual. He states he has chronic shortness of breath and states no worse than usual. He admits to chronic right-sided lung pain. States is no worse than usual. He denies any chest pain, leg pain or swelling. States he is followed down the road at [facility] and states his next chemo treatment and appointment is on 07/17. He denies any recent hospital admission or recent antibiotics. Past medical history: HTN, HLD, Non-hodgkin's lymphoma, Stage 4 [place] Cancer, Bladder/prostate cancer Surgical history: Bladder/prostate resection Social history: Quit tobacco, Former alcohol use, Denies drugs Meds: See list Allergies: Cipro, PCN, Tetanus, Toprol, Norvasc Related Data Home Medications Medication Instructions Recorded Confirmed acetaminophen [Acetaminophen Extra 1,000 mg PO TID 07/12/18 07/12/18 Strength] bisacodyl 10 mg [place] DAILY 07/12/18 07/12/18 diltiazem HCl [DILT-XR] 180 mg PO DAILY 07/12/18 07/12/18 fentanyl 1 patch TRANSDERMAL Q72H 07/12/18 07/12/18 gabapentin 300 mg PO TID 07/12/18 07/12/18 hydrocodone-acetaminophen 1 tab PO TID 07/12/18 07/12/18 lorazepam 0.5 mg PO QID PRN 07/12/18 07/12/18 losartan 25 mg PO DAILY 07/12/18 07/12/18 [id number] 1 tab PO DAILY 07/12/18 07/12/18 [Theragran-M Premier 50 Plus] nitroglycerin 0.4 mg SUBLINGUAL ONCE PRN 07/12/18 07/12/18 omeprazole 20 mg PO DAILY 07/12/18 07/12/18 ondansetron 8 mg PO TID PRN 07/12/18 07/12/18 oxycodone 10 mg PO QID PRN 07/12/18 07/12/18 polyethylene glycol 3350 17 g PO DAILY PRN 07/12/18 07/12/18 sennosides [senna] 1 tab PO DAILY 07/12/18 07/12/18 simvastatin 40 mg PO QPM 07/12/18 07/12/18 Allergies Allergy/AdvReac Type Severity Reaction Status Date / Time amlodipine Allergy Unknown Itching Unverified 07/12/18 09:34 ciprofloxacin Allergy Unknown Hives Unverified 07/12/18 09:34 metoprolol Allergy Unknown Hives Unverified 07/12/18 09:34 paclitaxel Allergy Unknown Anaphylaxsi Unverified 07/12/18 09:34 s Penicillins Allergy Unknown Other (See Unverified 07/12/18 09:35 Comment) tetanus and diphtheria Allergy Unknown Other (See Unverified 07/12/18 09:35 toxoids Comment) tetanus toxoid, adsorbed Allergy Unknown Other (See Unverified 07/12/18 09:35 Comment) General Stated Complaint: Fever BARRY: 3 Review of Systems Review of Systems All systems reviewed & are unremarkable except as noted in HPI and below Constitutional Denies chills, Denies excessive sweating, Denies fatigue, Denies fever(s), Denies weakness and Denies weight loss Eyes Reports system reviewed and no additional complaints, except as docu and Denies blurry vision ENT Denies vertigo, Denies dizziness, Denies otalgia, Denies nasal congestion, Denies sore throat and Denies throat swelling Cardiovascular Denies chest pain, Denies syncope, Denies rapid heart rate and Reports dyspnea ( chronic) Respiratory Reports dyspnea (chronic) Gastrointestinal Denies abdominal pain, Denies diarrhea and Denies vomiting Genitourinary Denies hematuria, Denies dysuria and Denies flank pain Musculoskeletal Denies back pain and Denies joint swelling Integumentary/Breasts Denies lesions and Denies rash Neurologic Denies behavioral changes, Denies confusion, Denies vertigo, Denies dizziness, Denies syncope and Denies weakness Psychiatric Denies behavioral changes, Denies confusion and Denies depression Endocrine Denies excessive sweating and Denies fatigue Hematologic/Lymphatic Denies easy bruising and Denies lymphadenopathy Allergic/Immunologic Denies throat swelling [facility] Social History Smoking/Tobacco Use Status: Former Tobacco Use Exam Const General: cooperative and healthy appearing Orientation: alert and awake [facility] Head: normal to inspection Ears: hearing grossly normal bilaterally, external ears normal and TM's normal bilaterally General nose exam: external nose normal Face and sinus: normal facial exam Mouth: oral mucosae normal Teeth and gingiva: dentition normal Throat: posterior oropharynx normal Eyes General: appearance normal, both eyes and all related structures Eyelids: eyelids normal EOM: EOM intact bilaterally Neck Neck: normal visual inspection Lymphatic: no lymphadenopathy noted Chest Chest: normal inspection of the chest Resp Effort & Inspection: normal respiratory effort and able to speak in complete sentences Auscultation: clear to auscultation bilaterally and crackles on the right at the base Cardio Rate: regular rate Rhythm: regular rhythm GI Inspection: normal to inspection Palpation: soft, not firm, no guarding, no hepatosplenomegaly, no masses and nontender Auscultation: normal bowel sounds Back/Spine/Pelvis Back: no CVA tenderness Skin General skin exam: no rashes or lesions noted Neuro General: alert and awake Cognition: normal cognition Speech: speech normal Gait: normal gait Motor: muscle tone normal throughout Sensory Exam: no sensory deficits noted Extrem General: normal to inspection, full ROM, normal capillary refill and no edema Psych Appearance: grossly normal Mental Status: mental status grossly normal Speech and Movement: speech and movement normal Affect: normal affect Thought Process: normal Course 07/12/18 09:35 Sputum Sputum Culture - Pending 07/12/18 09:35 Sputum Gram Stain - Final 07/12/18 09:57 Blood Blood Culture - Pending 07/12/18 09:57 Blood Blood Culture - Pending 07/12/18 09:20 Urine - Reflex from Ua Urine Culture - Pending Laboratory Tests Range/Units 07/12/18 07/12/18 07/12/18 09:20 09:35 09:35 WBC (4.4-10.8) k/cumm RBC (4.50-6.00) m/cumm Hgb (13.5-17.5) g/dL Hct (40.0-50.0) % MCV (80-95) fL MCH (27.0-33.0) pg MCHC (32.0-36.0) g/dL RDW (11.8-14.1) % Plt Count (130-400) x1000/uL MPV (8.0-11.0) fL Immature Gran % Neutrophils % Lymphocytes % Monocytes % Eosinophils % Basophils % Absolute Neutrophils (1.2-6.7) k/cumm Absolute Lymphocytes (1.2-3.4) k/cumm Absolute Monocytes (0.11-0.7) k/cumm Absolute Eosinophils (0.0-0.7) k/cumm Absolute Basophils (0.0-0.2) k/cumm Sodium (136-145) mmol/L 135 L Potassium (3.5-5.1) mmol/L 4.0 Chloride (98-107) mmol/L 99 Carbon Dioxide (21.0-32.0) mmol/L 26.1 Anion Gap (3-11) mmol/L 9.9 BUN (7-18) mg/dL 12 Creatinine (0.70-1.30) mg/dL 1.09 Estimated GFR/1.73 m2 (mL/min/1.73m2) >= 60.00 Glucose (70-100) mg/dL 107 H Lactate (0.6-1.4) mmol/L 1.1 Calcium (8.5-10.1) mg/dL 8.8 Magnesium (1.8-2.4) mg/dL 1.7 L Total Bilirubin (0.2-1.0) mg/dL 0.4 AST (15-37) U/L 18 ALT (12-78) U/L 25 Alkaline Phosphatase (46-116) U/L 87 Troponin I (0.00-0.06) ng/mL < 0.02 Total Protein (6.4-8.2) g/dL 6.7 Albumin (3.4-5.0) g/dL 2.8 L Urine Color (Yellow) Yellow Urine Clarity Turbid Urine pH (5-8) >= 9.0 H Ur Specific Tracy (1.005-1.025) 1.010 Urine Protein (Negative) mg/dL 100 H Urine Ketones (Negative) mg/dL Negative Urine Blood (Negative) Negative Urine Nitrite (Negative) Negative Urine Bilirubin (Negative) Negative Urine Urobilinogen (Up TO 0.2) EU/dL 0.2 Ur Leukocyte Esterase (Negative) Small H Urine RBC (0-2) Negative Urine WBC (0-5) HPF 5-10 Ur Epithelial Cells (Negative) HPF Negative Urine Crystals (Negative) HPF Many uric acid Urine Bacteria (Negative) HPF Few Urine Casts (Negative) LPF Negative Urine Mucus (Negative) Trace Ur Culture Indicated? Yes Urine Glucose (Negative) mg/dL Negative Range/Units 07/12/18 09:35 WBC (4.4-10.8) k/cumm 9.51 RBC (4.50-6.00) m/cumm 3.84 L Hgb (13.5-17.5) g/dL 12.4 L Hct (40.0-50.0) % 38.4 L MCV (80-95) fL 100.0 H MCH (27.0-33.0) pg 32.3 MCHC (32.0-36.0) g/dL 32.3 RDW (11.8-14.1) % 14.4 H Plt Count (130-400) x1000/uL 331 MPV (8.0-11.0) fL 8.6 Immature Gran % 0.4 Neutrophils % 93.2 Lymphocytes % 2.8 Monocytes % 3.2 Eosinophils % 0.3 Basophils % 0.1 Absolute Neutrophils (1.2-6.7) k/cumm 8.86 H Absolute Lymphocytes (1.2-3.4) k/cumm 0.27 L Absolute Monocytes (0.11-0.7) k/cumm 0.30 Absolute Eosinophils (0.0-0.7) k/cumm 0.03 Absolute Basophils (0.0-0.2) k/cumm 0.01 Sodium (136-145) mmol/L Potassium (3.5-5.1) mmol/L Chloride (98-107) mmol/L Carbon Dioxide (21.0-32.0) mmol/L Anion Gap (3-11) mmol/L BUN (7-18) mg/dL Creatinine (0.70-1.30) mg/dL Estimated GFR/1.73 m2 (mL/min/1.73m2) Glucose (70-100) mg/dL Lactate (0.6-1.4) mmol/L Calcium (8.5-10.1) mg/dL Magnesium (1.8-2.4) mg/dL Total Bilirubin (0.2-1.0) mg/dL AST (15-37) U/L ALT (12-78) U/L Alkaline Phosphatase (46-116) U/L Troponin I (0.00-0.06) ng/mL Total Protein (6.4-8.2) g/dL Albumin (3.4-5.0) g/dL Urine Color (Yellow) Urine Clarity Urine pH (5-8) Ur Specific Tracy (1.005-1.025) Urine Protein (Negative) mg/dL Urine Ketones (Negative) mg/dL Urine Blood (Negative) Urine Nitrite (Negative) Urine Bilirubin (Negative) Urine Urobilinogen (Up TO 0.2) EU/dL Ur Leukocyte Esterase (Negative) Urine RBC (0-2) Urine WBC (0-5) HPF Ur Epithelial Cells (Negative) HPF Urine Crystals (Negative) HPF Urine Bacteria (Negative) HPF Urine Casts (Negative) LPF Urine Mucus (Negative) Ur Culture Indicated? Urine Glucose (Negative) mg/dL Vital Signs Temperature 98.6 F 07/12/18 09:16 Pulse 82 07/12/18 09:16 Respiratory Rate 18 07/12/18 09:16 Blood Pressure 133/66 07/12/18 09:16 Pulse Oximetry 94 L 07/12/18 09:16 Temperature 100.0 F H 07/12/18 10:35 Temperature Source Skin 07/12/18 09:16 Pulse 68 07/12/18 10:16 Pulse 67 07/12/18 10:30 Respiratory Rate 14 07/12/18 10:30 Respiratory Effort Non-Labored 07/12/18 09:19 Blood Pressure 116/59 L 07/12/18 10:16 Blood Pressure Mean 73 07/12/18 10:16 Pulse Oximetry 94 L 07/12/18 10:30 Pain Level 8 07/12/18 09:16 Lab/Test Results Lab/Test Results: 07/12/18 09:35 Sputum Sputum Culture - Pending 07/12/18 09:35 Sputum Gram Stain - Final 07/12/18 09:57 Blood Blood Culture - Pending 07/12/18 09:57 Blood Blood Culture - Pending 07/12/18 09:20 Urine - Reflex from Ua Urine Culture - Pending Laboratory Tests Range/Units 07/12/18 07/12/18 07/12/18 09:20 09:35 09:35 WBC (4.4-10.8) k/cumm RBC (4.50-6.00) m/cumm Hgb (13.5-17.5) g/dL Hct (40.0-50.0) % MCV (80-95) fL MCH (27.0-33.0) pg MCHC (32.0-36.0) g/dL RDW (11.8-14.1) % Plt Count (130-400) x1000/uL MPV (8.0-11.0) fL Immature Gran % Neutrophils % Lymphocytes % Monocytes % Eosinophils % Basophils % Absolute Neutrophils (1.2-6.7) k/cumm Absolute Lymphocytes (1.2-3.4) k/cumm Absolute Monocytes (0.11-0.7) k/cumm Absolute Eosinophils (0.0-0.7) k/cumm Absolute Basophils (0.0-0.2) k/cumm Sodium (136-145) mmol/L 135 L Potassium (3.5-5.1) mmol/L 4.0 Chloride (98-107) mmol/L 99 Carbon Dioxide (21.0-32.0) mmol/L 26.1 Anion Gap (3-11) mmol/L 9.9 BUN (7-18) mg/dL 12 Creatinine (0.70-1.30) mg/dL 1.09 Estimated GFR/1.73 m2 (mL/min/1.73m2) >= 60.00 Glucose (70-100) mg/dL 107 H Lactate (0.6-1.4) mmol/L 1.1 Calcium (8.5-10.1) mg/dL 8.8 Magnesium (1.8-2.4) mg/dL 1.7 L Total Bilirubin (0.2-1.0) mg/dL 0.4 AST (15-37) U/L 18 ALT (12-78) U/L 25 Alkaline Phosphatase (46-116) U/L 87 Troponin I (0.00-0.06) ng/mL < 0.02 Total Protein (6.4-8.2) g/dL 6.7 Albumin (3.4-5.0) g/dL 2.8 L Urine Color (Yellow) Yellow Urine Clarity Turbid Urine pH (5-8) >= 9.0 H Ur Specific [place] (1.005-1.025) 1.010 Urine Protein (Negative) mg/dL 100 H Urine Ketones (Negative) mg/dL Negative Urine Blood (Negative) Negative Urine Nitrite (Negative) Negative Urine Bilirubin (Negative) Negative Urine Urobilinogen (Up TO 0.2) EU/dL 0.2 Ur Leukocyte Esterase (Negative) Small H Urine RBC (0-2) Negative Urine WBC (0-5) HPF 5-10 Ur Epithelial Cells (Negative) HPF Negative Urine Crystals (Negative) HPF Many uric acid Urine Bacteria (Negative) HPF Few Urine Casts (Negative) LPF Negative Urine Mucus (Negative) Trace Ur Culture Indicated? Yes Urine Glucose (Negative) mg/dL Negative Range/Units 07/12/18 09:35 WBC (4.4-10.8) k/cumm 9.51 RBC (4.50-6.00) m/cumm 3.84 L Hgb (13.5-17.5) g/dL 12.4 L Hct (40.0-50.0) % 38.4 L MCV (80-95) fL 100.0 H MCH (27.0-33.0) pg 32.3 MCHC (32.0-36.0) g/dL 32.3 RDW (11.8-14.1) % 14.4 H Plt Count (130-400) x1000/uL 331 MPV (8.0-11.0) fL 8.6 Immature Gran % 0.4 Neutrophils % 93.2 Lymphocytes % 2.8 Monocytes % 3.2 Eosinophils % 0.3 Basophils % 0.1 Absolute Neutrophils (1.2-6.7) k/cumm 8.86 H Absolute Lymphocytes (1.2-3.4) k/cumm 0.27 L Absolute Monocytes (0.11-0.7) k/cumm 0.30 Absolute Eosinophils (0.0-0.7) k/cumm 0.03 Absolute Basophils (0.0-0.2) k/cumm 0.01 Sodium (136-145) mmol/L Potassium (3.5-5.1) mmol/L Chloride (98-107) mmol/L Carbon Dioxide (21.0-32.0) mmol/L Anion Gap (3-11) mmol/L BUN (7-18) mg/dL Creatinine (0.70-1.30) mg/dL Estimated GFR/1.73 m2 (mL/min/1.73m2) Glucose (70-100) mg/dL Lactate (0.6-1.4) mmol/L Calcium (8.5-10.1) mg/dL Magnesium (1.8-2.4) mg/dL Total Bilirubin (0.2-1.0) mg/dL AST (15-37) U/L ALT (12-78) U/L Alkaline Phosphatase (46-116) U/L Troponin I (0.00-0.06) ng/mL Total Protein (6.4-8.2) g/dL Albumin (3.4-5.0) g/dL Urine Color (Yellow) Urine Clarity Urine pH (5-8) Ur Specific Tracy (1.005-1.025) Urine Protein (Negative) mg/dL Urine Ketones (Negative) mg/dL Urine Blood (Negative) Urine Nitrite (Negative) Urine Bilirubin (Negative) Urine Urobilinogen (Up TO 0.2) EU/dL Ur Leukocyte Esterase (Negative) Urine RBC (0-2) Urine WBC (0-5) HPF Ur Epithelial Cells (Negative) HPF Urine Crystals (Negative) HPF Urine Bacteria (Negative) HPF Urine Casts (Negative) LPF Urine Mucus (Negative) Ur Culture Indicated? Urine Glucose (Negative) mg/dL
[2018-07-12] MEDS: Acetaminophen 500 MG TAB 1000 MG PO (11:28)
== END 2018-07-12 11:40 | disposition home or self-care (01) ==
LOC: ER 11:38
PROVIDERS: Emergency Provider Physician Assistant; PCP Neuromusculoskeletal Medicine & OMM
DX: R50.9 Fever, unspecified (principal); Z85.118 Personal history of other malignant neoplasm of bronchus and lung; Z92.21 Personal history of antineoplastic chemotherapy; I45.10 Unspecified right bundle-branch block; I44.4 Left anterior fascicular block
CPT/HCPCS: 36415; 80053; 87040; 93005; 99285; 71046; 81003; 81015; 83605; 83735; 84484; 85025; 87070; 87086; 87205; 93010

== ENCOUNTER 2018-08-07 10:53 | Outpatient (REF) | payer MEDICARE, MEDICAID, SELFPAY ==
[2018-08-07 11:08] LABS: ALT 25 U/L (12-78); AST 18 U/L (15-37); Alkaline Phosphatase 94 U/L (46-116); Anion Gap 5.1 mmol/L (3-11); BUN 18 mg/dL (7-18); Bilirubin, Total 0.4 mg/dL (0.2-1.0); CO2 31.9 mmol/L (21.0-32.0); CREATININE 0.97 mg/dL (0.70-1.30); Calcium 9.4 mg/dL (8.5-10.1); Chloride 98 mmol/L (98-107); Glucose 104 mg/dL (70-100); Potassium 4.7 mmol/L (3.5-5.1); Sodium 135 mmol/L (136-145)
== END 2018-08-07 11:13 ==
LOC: LBN 10:53
PROVIDERS: PCP Neuromusculoskeletal Medicine & OMM; Visit Provider Internal Medicine Hematology & Oncology
DX: C34.91 Malignant neoplasm of unspecified part of right bronchus or lung (principal)
CPT/HCPCS: 80053

== ENCOUNTER 2018-08-28 08:43 | Outpatient (REF) | payer MEDICARE, MEDICAID, SELFPAY ==
[2018-08-28 08:59] LABS: Abs Immature Grans 0.02 k/cumm (0.0-0.09); Absolute Basophil Count 0.01 k/cumm (0.0-0.2); Absolute Eosinophil Count 0.01 k/cumm (0.0-0.7); Absolute Lymphocyte Count 0.56 k/cumm (1.2-3.4); Absolute Monocyte Count 0.34 k/cumm (0.11-0.7); Absolute Neutrophil Count 3.45 k/cumm (1.2-6.7); Basophils % 0.2; Eosinophils % 0.2; HCT 29.7 % (40.0-50.0); HGB 9.7 g/dL (13.5-17.5); Immature Grans % 0.5; Lymphocytes % 12.8; Mean Corp. HGB Concentration 32.7 g/dL (32.0-36.0); Mean Corpuscular Hemoglobin 33.3 pg (27.0-33.0); Mean Corpuscular Volume 102.1 fL (80-95); Mean Platelet Volume 9.5 fL (8.0-11.0); Monocytes % 7.7; Neutrophils % 78.6; Platelet Count 157 x1000/uL (130-400); RBC 2.91 m/cumm (4.50-6.00); RBC Distribution Width 15.3 % (11.8-14.1); White Blood Cell Count 4.39 k/cumm (4.4-10.8)
[2018-08-28 09:10] LABS: ALT 21 U/L (12-78); AST 15 U/L (15-37); Albumin 3.2 g/dL (3.4-5.0); Alkaline Phosphatase 89 U/L (46-116); Anion Gap 8.2 mmol/L (3-11); BUN 20 mg/dL (7-18); Bilirubin, Total 0.5 mg/dL (0.2-1.0); CO2 29.8 mmol/L (21.0-32.0); CREATININE 0.99 mg/dL (0.70-1.30); Calcium 8.9 mg/dL (8.5-10.1); Chloride 100 mmol/L (98-107); Glucose 94 mg/dL (70-100); Potassium 4.1 mmol/L (3.5-5.1); Sodium 138 mmol/L (136-145); Total Protein 6.6 g/dL (6.4-8.2)
[2018-08-28 09:25] LABS: Diff Comment Diff Reviewed; Hypochromasia 2+; Polychromasia Present
[2018-08-28 09:26] LABS: Poikilocytes 2+
== END 2018-08-28 09:03 ==
LOC: LBN 08:43
PROVIDERS: PCP Neuromusculoskeletal Medicine & OMM; Visit Provider Internal Medicine Hematology & Oncology
DX: C34.91 Malignant neoplasm of unspecified part of right bronchus or lung (principal)
CPT/HCPCS: 80053; 85025

== ENCOUNTER 2018-09-03 08:09 | Outpatient (CLI) | payer MEDICARE, MEDICAID, SELFPAY ==
[2018-09-03 08:27] LABS: Abs Immature Grans 0.01 k/cumm (0.0-0.09); Absolute Eosinophil Count 0.01 k/cumm (0.0-0.7); Absolute Lymphocyte Count 0.65 k/cumm (1.2-3.4); Absolute Monocyte Count 0.34 k/cumm (0.11-0.7); Absolute Neutrophil Count 1.71 k/cumm (1.2-6.7); Eosinophils % 0.4; HCT 28.6 % (40.0-50.0); HGB 9.5 g/dL (13.5-17.5); Immature Grans % 0.4; Lymphocytes % 23.9; Mean Corp. HGB Concentration 33.2 g/dL (32.0-36.0); Mean Corpuscular Hemoglobin 33.2 pg (27.0-33.0); Mean Platelet Volume 9.1 fL (8.0-11.0); Monocytes % 12.5; Neutrophils % 62.8; Platelet Count 137 x1000/uL (130-400); RBC 2.86 m/cumm (4.50-6.00); RBC Distribution Width 15.3 % (11.8-14.1); White Blood Cell Count 2.72 k/cumm (4.4-10.8)
[2018-09-03 08:47] LABS: ALT 21 U/L (12-78); AST 15 U/L (15-37); Albumin 3.4 g/dL (3.4-5.0); Alkaline Phosphatase 111 U/L (46-116); Anion Gap 8.1 mmol/L (3-11); BUN 19 mg/dL (7-18); Bilirubin, Total 0.4 mg/dL (0.2-1.0); CO2 28.9 mmol/L (21.0-32.0); CREATININE 0.99 mg/dL (0.70-1.30); Calcium 9.2 mg/dL (8.5-10.1); Chloride 98 mmol/L (98-107); Glucose 97 mg/dL (70-100); Potassium 3.9 mmol/L (3.5-5.1); Sodium 135 mmol/L (136-145); T4 10.1 ug/dL (4.5-12.5); TSH 1.12 uIU/mL (0.358-3.74); Total Protein 6.7 g/dL (6.4-8.2)
[2018-09-03 08:59] LABS: Macrocytosis 1+
== END 2018-09-03 08:29 ==
PROVIDERS: PCP Neuromusculoskeletal Medicine & OMM; Visit Provider Internal Medicine Hematology & Oncology
DX: C34.91 Malignant neoplasm of unspecified part of right bronchus or lung (principal); E06.4 Drug-induced thyroiditis
CPT/HCPCS: 36415; 80053; 84436; 84443; 85025

== ENCOUNTER 2018-11-27 10:09 | Outpatient (CLI) | payer MEDICARE, MEDICAID, SELFPAY ==
[2018-11-27 10:32] LABS: Abs Immature Grans 0.02 k/cumm (0.0-0.09); Absolute Basophil Count 0.01 k/cumm (0.0-0.2); Absolute Eosinophil Count 0.05 k/cumm (0.0-0.7); Absolute Lymphocyte Count 0.75 k/cumm (1.2-3.4); Absolute Monocyte Count 0.56 k/cumm (0.11-0.7); Absolute Neutrophil Count 4.69 k/cumm (1.2-6.7); Basophils % 0.2; Eosinophils % 0.8; HCT 27.3 % (40.0-50.0); HGB 9.2 g/dL (13.5-17.5); Immature Grans % 0.3; Lymphocytes % 12.3; Mean Corp. HGB Concentration 33.7 g/dL (32.0-36.0); Mean Corpuscular Hemoglobin 40.5 pg (27.0-33.0); Mean Corpuscular Volume 120.3 fL (80-95); Mean Platelet Volume 9.4 fL (8.0-11.0); Monocytes % 9.2; Neutrophils % 77.2; RBC 2.27 m/cumm (4.50-6.00); RBC Distribution Width 13.8 % (11.8-14.1); White Blood Cell Count 6.08 k/cumm (4.4-10.8)
[2018-11-27 10:53] LABS: Macrocytosis 1+; Platelet Count 87 x1000/uL (130-400)
[2018-11-27 10:54] LABS: Poikilocytes 1+
[2018-11-27 11:02] LABS: ALT 19 U/L (12-78); AST 16 U/L (15-37); Albumin 3.3 g/dL (3.4-5.0); Alkaline Phosphatase 77 U/L (46-116); Anion Gap 6.8 mmol/L (3-11); BUN 23 mg/dL (7-18); Bilirubin, Total 0.5 mg/dL (0.2-1.0); CO2 31.2 mmol/L (21.0-32.0); CREATININE 1.06 mg/dL (0.70-1.30); Calcium 8.7 mg/dL (8.5-10.1); Chloride 101 mmol/L (98-107); Glucose 86 mg/dL (70-100); Sodium 139 mmol/L (136-145); T4 9.8 ug/dL (4.5-12.5); TSH 1.02 uIU/mL (0.358-3.74); Total Protein 6.7 g/dL (6.4-8.2)
== END 2018-11-27 10:29 ==
PROVIDERS: PCP Neuromusculoskeletal Medicine & OMM; Visit Provider Internal Medicine Hematology & Oncology
DX: C34.91 Malignant neoplasm of unspecified part of right bronchus or lung (principal); E06.4 Drug-induced thyroiditis
CPT/HCPCS: 36415; 80053; 84436; 84443; 85025

== ENCOUNTER 2018-12-04 09:12 | Outpatient (CLI) | payer MEDICARE, MEDICAID, SELFPAY ==
[2018-12-04 09:27] LABS: Abs Immature Grans 0.01 k/cumm (0.0-0.09); Absolute Eosinophil Count 0.06 k/cumm (0.0-0.7); Absolute Lymphocyte Count 0.64 k/cumm (1.2-3.4); Absolute Monocyte Count 0.31 k/cumm (0.11-0.7); Absolute Neutrophil Count 2.89 k/cumm (1.2-6.7); Eosinophils % 1.5; HCT 23.4 % (40.0-50.0); HGB 7.9 g/dL (13.5-17.5); Immature Grans % 0.3; Lymphocytes % 16.4; Mean Corp. HGB Concentration 33.8 g/dL (32.0-36.0); Mean Corpuscular Hemoglobin 40.9 pg (27.0-33.0); Mean Corpuscular Volume 121.2 fL (80-95); Mean Platelet Volume 8.8 fL (8.0-11.0); Monocytes % 7.9; Neutrophils % 73.9; RBC 1.93 m/cumm (4.50-6.00); RBC Distribution Width 13.5 % (11.8-14.1); White Blood Cell Count 3.91 k/cumm (4.4-10.8)
[2018-12-04 09:40] LABS: ALT 21 U/L (12-78); AST 17 U/L (15-37); Alkaline Phosphatase 90 U/L (46-116); Anion Gap 8.7 mmol/L (3-11); BUN 27 mg/dL (7-18); Bilirubin, Total 0.3 mg/dL (0.2-1.0); CO2 28.3 mmol/L (21.0-32.0); CREATININE 1.18 mg/dL (0.70-1.30); Calcium 8.6 mg/dL (8.5-10.1); Chloride 103 mmol/L (98-107); Glucose 110 mg/dL (70-100); Sodium 140 mmol/L (136-145); Total Protein 6.6 g/dL (6.4-8.2)
[2018-12-04 09:49] LABS: Platelet Count 86 x1000/uL (130-400)
[2018-12-04 09:50] LABS: Diff Comment PLT Morph Reviewed; Macrocytosis 2+
== END 2018-12-04 09:32 ==
PROVIDERS: PCP Neuromusculoskeletal Medicine & OMM; Visit Provider Internal Medicine Hematology & Oncology
DX: C34.91 Malignant neoplasm of unspecified part of right bronchus or lung (principal)
CPT/HCPCS: 36415; 80053; 85025

== ENCOUNTER 2018-12-11 09:48 | Outpatient (RCR) | payer MEDICARE, MEDICAID, SELFPAY | END 2018-12-16 23:59 | disposition home or self-care (01) | LOC: INF 09:48 | PROVIDERS: PCP Neuromusculoskeletal Medicine & OMM; Visit Provider Internal Medicine Hematology & Oncology | DX: R69 Illness, unspecified (principal) ==

== ENCOUNTER 2019-01-08 01:58 | Outpatient (RCR) | payer MEDICARE, MEDICAID, SELFPAY ==
[2018-12-25] MEDS: Normal Saline Flush 10 ML SYR IVP (09:08)
[2018-12-25 09:24] LABS: Abs Immature Grans 0.04 k/cumm (0.0-0.09); Absolute Basophil Count 0.01 k/cumm (0.0-0.2); Absolute Eosinophil Count 0.05 k/cumm (0.0-0.7); Absolute Monocyte Count 0.62 k/cumm (0.11-0.7); Absolute Neutrophil Count 4.26 k/cumm (1.2-6.7); Basophils % 0.2; Eosinophils % 0.9; HCT 30.1 % (40.0-50.0); HGB 9.5 g/dL (13.5-17.5); Immature Grans % 0.7; Lymphocytes % 13.8; Mean Corp. HGB Concentration 31.6 g/dL (32.0-36.0); Mean Corpuscular Hemoglobin 36.5 pg (27.0-33.0); Mean Corpuscular Volume 115.8 fL (80-95); Mean Platelet Volume 9.2 fL (8.0-11.0); Monocytes % 10.7; Neutrophils % 73.7; White Blood Cell Count 5.78 k/cumm (4.4-10.8)
[2018-12-25 09:41] LABS: Platelet Count 308 x1000/uL (130-400)
[2018-12-25 09:42] LABS: Anisocytosis 2+; Diff Comment RBC Morph Reviewed; Macrocytosis 2+; Poikilocytes 2+; Polychromasia Present
[2018-12-25 10:03] LABS: ALT 27 U/L (12-78); AST 15 U/L (15-37); Albumin 2.8 g/dL (3.4-5.0); Alkaline Phosphatase 87 U/L (46-116); Anion Gap 8.1 mmol/L (3-11); BUN 24 mg/dL (7-18); Bilirubin, Total 0.2 mg/dL (0.2-1.0); CO2 26.9 mmol/L (21.0-32.0); CREATININE 1.08 mg/dL (0.70-1.30); Calcium 8.9 mg/dL (8.5-10.1); Chloride 104 mmol/L (98-107); Glucose 88 mg/dL (70-100); Potassium 4.3 mmol/L (3.5-5.1); Sodium 139 mmol/L (136-145); TSH 0.84 uIU/mL (0.358-3.74); Total Protein 6.4 g/dL (6.4-8.2)
[2018-12-25 10:17] LABS: T4 9.4 ug/dL (4.5-12.5)
[2019-01-08] MEDS: Normal Saline Flush 10 ML SYR IVP (13:22)
[2019-01-08 13:35] LABS: Abs Immature Grans 0.02 k/cumm (0.0-0.09); Absolute Basophil Count 0.01 k/cumm (0.0-0.2); Absolute Lymphocyte Count 0.69 k/cumm (1.2-3.4); Absolute Monocyte Count 0.93 k/cumm (0.11-0.7); Absolute Neutrophil Count 5.91 k/cumm (1.2-6.7); Basophils % 0.1; Eosinophils % 1.3; HGB 10.3 g/dL (13.5-17.5); Immature Grans % 0.3; Mean Corp. HGB Concentration 31.2 g/dL (32.0-36.0); Mean Corpuscular Hemoglobin 35.2 pg (27.0-33.0); Mean Corpuscular Volume 112.6 fL (80-95); Monocytes % 12.1; Neutrophils % 77.2; Platelet Count 293 x1000/uL (130-400); RBC 2.93 m/cumm (4.50-6.00); RBC Distribution Width 17.6 % (11.8-14.1); White Blood Cell Count 7.66 k/cumm (4.4-10.8)
[2019-01-08 13:56] LABS: ALT 19 U/L (12-78); AST 13 U/L (15-37); Albumin 2.6 g/dL (3.4-5.0); Alkaline Phosphatase 88 U/L (46-116); Anion Gap 8.9 mmol/L (3-11); BUN 18 mg/dL (7-18); Bilirubin, Total 0.3 mg/dL (0.2-1.0); CO2 27.1 mmol/L (21.0-32.0); CREATININE 0.98 mg/dL (0.70-1.30); Calcium 8.6 mg/dL (8.5-10.1); Chloride 102 mmol/L (98-107); Glucose 127 mg/dL (70-100); Potassium 4.1 mmol/L (3.5-5.1); Sodium 138 mmol/L (136-145); T4 9.9 ug/dL (4.5-12.5); TSH 0.53 uIU/mL (0.358-3.74); Total Protein 6.6 g/dL (6.4-8.2)
== END 2019-01-16 23:59 | disposition home or self-care (01) ==
LOC: INF 01:58
PROVIDERS: PCP Neuromusculoskeletal Medicine & OMM; Visit Provider Internal Medicine Hematology & Oncology
DX: C34.91 Malignant neoplasm of unspecified part of right bronchus or lung (principal); E06.4 Drug-induced thyroiditis; Z45.2 Encounter for adjustment and management of vascular access device
CPT/HCPCS: 36591; 80053; 84436; 84443; 85025